=== PATIENT | female | born 1945 | race Caucasian/White ===

== ENCOUNTER → 2016-07-11 | Outpatient (CLI) | payer MEDICARE ==
[~2016-07-11] MED LIST: ASPIRIN PO; HCTZ PO; LEXAPRO PO; LIPITOR PO; LOPRESSOR PO; NORVASC PO; PLAVIX PO
--- NOTE | ~2016-07-11 | MY11 ---
[facility] A Service of [facility] RADIOLOGY TEXT RESULTS PATIENT: GIBSON HERNANDEZ LOCATION: [facility] : 47 UNIT #: [id number] AGE: [address]: Whitney Gutiérrez MD SEX: F ORDER DR: [id number] [facility] [address] [place], [place] [address] [id number] O MR#: [id number] #: [id number] NAME: GIBSON HERNANDEZ : 1945 SEX: F STUDY DATE/TIME: 07/11/2016 10:28 UNIT: [facility] ROOM: STUDY DESCRIPTION: MY Mammogram Screening Dig Greyson Attending Physician: Whitney Gutiérrez M.D. Ordering Physician: Whitney Gutiérrez M.D. Primary Care Physician: Whitney Gutiérrez M.D. MEDICAL IMAGING REPORT This report is preliminary unless electronic signature is present EXAM Digital screening mammogram 07/11/2016 HISTORY 70-year-old woman. Positive family history, maternal aunt. Prior image-guided right breast biopsy. Annual screen. COMPARISON Mammograms date to 02/25/2006 with most recent comparison 07/06/2015. FINDINGS Digital imaging of each breast was completed utilizing screening protocol. Review includes FDA-approved CAD device. Multiple mole markers are placed bilaterally. Breast parenchyma is heterogeneously dense with a small nodular distribution in each breast. Slight dominance projects anterior third upper, inner left breast location. I see no suspicious mass characteristics. There are no interval-occurring microcalcifications and no suspicious architectural deformity. IMPRESSION Stable benign mammogram. Annual screening recommended. Patient's over the age of 40 are entered into a reminder system with target due date for the next mammogram. BIRADS: 2 Benign findings Dictated by... Laron Cisneros M.D. [facility] A Service [facility] RADIOLOGY TEXT RESULTS PATIENT: GIBSON HERNANDEZ LOCATION: [facility] : 47 UNIT #: [id number] AGE: [address]: Whitney Gutiérrez MD SEX: F ORDER DR: THIS IS AN ELECTRONICALLY VERIFIED REPORT Laron Cisneros M.D. at 07/11/2016 3:45 PM [place] TD: 07/11/2016 14:57 JOB #: [id number] MEDICAL IMAGING REPORT COPY
== END | disposition home or self-care (01) ==
LOC: CWCC 10:04
DX: Z12.31 Encounter for screening mammogram for malignant neoplasm of breast (principal); Z80.3 Family history of malignant neoplasm of breast; Z98.890 Other specified postprocedural states
CPT/HCPCS: G0202